=== PATIENT | female | born 1990 | race Caucasian/White ===

== ENCOUNTER → 2016-12-26 | Outpatient (CLI) | payer SELFPAY ==
[~2016-12-26] MED LIST: BACTRIM,SEPT1 TABLET PO; BCP; CLEOCIN150 MG PO; CLEOCIN300 MG PO; KEFLEX500 MG PO; MOTRIN600 MG PO; NAPROSYN500 MG PO; NO HOME MEDS; NORCO 5/3251 TABLET PO; PERCOCET 5/31 TABLET PO; ULTRAM50 MG PO
== END | disposition home or self-care (01) ==
LOC: RAD 08:37
DX: R93.8 Abnormal findings on diagnostic imaging of other specified body structures (principal); M25.561 Pain in right knee
CPT/HCPCS: 73560; 76536

== ENCOUNTER → 2017-12-11 | Outpatient (CLI) | payer SELFPAY | END | disposition home or self-care (01) | LOC: RAD 09:55 | DX: D25.9 Leiomyoma of uterus, unspecified (principal) | CPT/HCPCS: 76856 ==

== ENCOUNTER 2017-12-19 15:09 | Emergency (ER) | payer SELFPAY ==
[~2017-12-19] VITALS: Ht 170.2 cm; Wt 61.4 kg
[2017-12-19 17:49] VITALS: BP 120/77
== END 2017-12-19 17:53 | disposition home or self-care (01) ==
LOC: EME 15:09
DX: S60.221A Contusion of right hand, initial encounter (principal); S63.501A Unspecified sprain of right wrist, initial encounter; W22.09XA Striking against other stationary object, initial encounter
CPT/HCPCS: 73110; 73130; 99281; 99284